=== PATIENT | female | born 1950 | race Caucasian/White ===

== ENCOUNTER 2017-06-01 12:47 | Emergency (ER) | payer OTHER ==
[~2017-06-01] VITALS: Ht 167.6 cm; Wt 71.8 kg
[2017-06-01] MEDS ORDERED: IBUPROFEN 600 MG TAB PO ONE (13:45)
--- NOTE | 2017-06-01 15:30 | REP ---
RIGHT WRIST, FOUR VIEWS: HISTORY: Pain. There is no acute fracture or dislocation. The joint spaces are normal in appearance. IMPRESSION: There is no acute fracture or dislocation. Signed by Ky Esparza MD 06/01/2017 03:33 P
--- NOTE | 2017-06-01 15:31 | REP ---
RIGHT ELBOW, FOUR VIEWS: HISTORY: Pain. There is no acute fracture or dislocation. The joint space is normal in appearance. IMPRESSION: There is no acute fracture or dislocation. Signed by Ky Esparza MD 06/01/2017 03:37 P
[2017-06-01 15:33] VITALS: BP 141/84
== END 2017-06-01 15:33 | disposition home or self-care (01) ==
LOC: M ED 12:47
DX: S63.511A Sprain of carpal joint of right wrist, initial encounter (principal); S50.01XA Contusion of right elbow, initial encounter; W01.0XXA Fall on same level from slipping, tripping and stumbling without subsequent striking against object, initial encounter; Y92.89 Other specified places as the place of occurrence of the external cause; Y93.89 Activity, other specified; Y99.8 Other external cause status

== ENCOUNTER → 2018-11-28 | Outpatient (REF) | payer OTHER | LOC: M LAB REF 17:04 | PROVIDERS: ATTEND Nurse Practitioner Family | DX: M79.2 Neuralgia and neuritis, unspecified (principal) ==

== ENCOUNTER → 2018-12-26 | Outpatient (REF) | payer OTHER ==
[2018-12-27 14:11] LABS: ANTI SCLERODERMA ANTIBODIES <0.2 AI (0.0-0.9); ANTINUCLEAR ANTIBODIES DIRECT Negative (Negative)
== END ==
LOC: M LAB REF 12:51
PROVIDERS: ATTEND Nurse Practitioner Adult Health
DX: R20.8 Other disturbances of skin sensation (principal)

== ENCOUNTER → 2019-11-20 | Outpatient (CLI) | payer MEDICARE ==
--- NOTE | 2019-11-20 11:59 | REP ---
THYROID SONOGRAPHY: HISTORY: Neck swelling. Mass and lump. Localized swelling. FINDINGS: Thyroid isthmus is normal measuring 0.2 cm in diameter. Right lobe of the thyroid measures 4.0 x 1.5 x 1.9 cm. Left lobe dimensions are 4.2 x 1.1 x 1.1 cm. There is a 0.3 cm cyst in the left lobe. No thyroid nodule is seen. Normal appearing neck nodes are visualized bilaterally. The largest on the left measures 1.6 x 0.6 x 0.9 cm. On the right there is a 1.6 x 0.5 x 1.1 cm lymph node. These have normal hypoechoic cortical margins and hyperechoic fatty hilar architecture. IMPRESSION: Unremarkable thyroid sonography. Normal appearing neck nodes seen. Electronically Signed by Seamus Velásquez MD 11/20/2019 01:33 P
== END ==
LOC: M RAD 10:09
PROVIDERS: ATTEND Nurse Practitioner Family
DX: R22.1 Localized swelling, mass and lump, neck (principal)

== ENCOUNTER → 2021-05-22 | Outpatient (CLI) | payer MEDICARE ==
[~2021-05-22] MED LIST: ALBU8.5H INH; AMLO1TAB25 PO; VALS320T2 PO
== END ==
LOC: M LABSMTC 11:23
PROVIDERS: ATTEND Anesthesiology
DX: Z01.812 Encounter for preprocedural laboratory examination (principal); Z20.822 Contact with and (suspected) exposure to COVID-19

== ENCOUNTER 2021-05-27 11:29 | Day surgery (SDC) | payer MEDICARE ==
[~2021-05-27] VITALS: Ht 162.6 cm; Wt 64.0 kg
[~2021-05-27 11:29] MED LIST changes: +NS 1,000 ML IV ONE
[2021-05-27] MEDS ORDERED: propofoL 200 MG/20 ML VIAL As Ordered ONE (12:52)
[2021-05-27] MEDS ORDERED: LIDOCAINE 2% 100MG/5ML SDV (FOR ANES.) As Ordered ONE (13:20)
--- NOTE | 2021-05-27 13:33 | ROOR ---
Patient Name: Kath Friedman Procedure Date: 05/27/2021 1:06 PM Date of : 1950 Age: 70 Room: [facility] Gender: Female Note Status: Finalized Procedure: Total Colonoscopy to Cecum + Biopsy Polypectomy Indications: Screening for colorectal malignant neoplasm, Last colonoscopy 10 years ago Providers: Cameron Meraz MD Referring MD: Carina Saldivar NP Requesting Provider: Medicines: Monitored Anesthesia Care Complications: No immediate complications. Procedure: Pre-Anesthesia Assessment: - The heart rate, respiratory rate, oxygen saturations, blood pressure, adequacy of pulmonary ventilation, and response to care were monitored throughout the procedure. The Colonoscope was introduced through the anus and advanced to the cecum, identified by appendiceal orifice and ileocecal valve. The colonoscopy was performed without difficulty. The patient tolerated the procedure well. The quality of the bowel preparation was good. Findings: The perianal and digital rectal examinations were normal. Non-bleeding internal hemorrhoids were found during retroflexion. The hemorrhoids were small and Grade I (internal hemorrhoids that do not prolapse). Scattered small-mouthed diverticula were found in the recto-sigmoid colon, sigmoid colon and descending colon. A small polyp was found at 20 cm proximal to the anus. The polyp was sessile. The polyp was removed with a jumbo cold forceps. Resection and retrieval were complete. The exam was otherwise without abnormality on direct and retroflexion views. Impression: - Non-bleeding internal hemorrhoids. - Diverticulosis in the recto-sigmoid colon, in the sigmoid colon and in the descending colon. - One small polyp at 20 cm proximal to the anus, removed with a jumbo cold forceps. Resected and retrieved. - The examination was otherwise normal on direct and retroflexion views. - The exam was otherwise normal to the cecum. Recommendation: - Patient has a contact number available for emergencies. The signs and symptoms of potential delayed complications were discussed with the patient. Return to normal activities tomorrow. Written discharge instructions were provided to the patient. - High fiber diet. - Discharge patient to home. - Continue present medications. - Await pathology results. - Telephone GI clinic for pathology results in 1 week. - Repeat colonoscopy PRN for surveillance. - Return to referring physician. - The findings and recommendations were discussed with the patient. Procedure Code(s): --- Professional --- 05763, Colonoscopy, flexible; with biopsy, single or multiple Diagnosis Code(s): --- Professional --- Z12.11, Encounter for screening for malignant neoplasm of colon K64.0, First degree hemorrhoids K63.5, Polyp of colon K57.30, Diverticulosis of large intestine without perforation or abscess without bleeding CPT copyright 2019 [employer]. All rights reserved. The codes documented in this report are preliminary and upon carrier associate review may be revised to meet current compliance requirements. Cameron Meraz MD Cameron Meraz MD 05/27/2021 1:33:11 PM Electronically signed by Cameron Meraz MD Number of Addenda: 0 Note Initiated On: 05/27/2021 1:06 PM Estimated Blood Loss: Estimated blood loss: none.
[2021-05-27 13:50] VITALS: BP 143/64
== END 2021-05-27 13:58 | disposition home or self-care (01) ==
LOC: M OPP 11:29
PROVIDERS: ATTEND Internal Medicine Gastroenterology
DX: Z12.11 Encounter for screening for malignant neoplasm of colon (principal); D12.6 Benign neoplasm of colon, unspecified; K64.0 First degree hemorrhoids; K57.30 Diverticulosis of large intestine without perforation or abscess without bleeding; J44.9 Chronic obstructive pulmonary disease, unspecified; Z79.899 Other long term (current) drug therapy; F17.210 Nicotine dependence, cigarettes, uncomplicated

== ENCOUNTER → 2024-05-28 | Outpatient (CLI) | payer MEDICARE ==
[~2024-05-28] MED LIST changes: -NS 1,000 ML IV ONE
== END ==
LOC: M PLAIMG 11:02
PROVIDERS: ATTEND Physician Assistant Medical
DX: R06.02 Shortness of breath (principal); J44.9 Chronic obstructive pulmonary disease, unspecified

== ENCOUNTER 2025-02-14 17:38 | Inpatient (IN) | payer OTHER, MEDICARE ==
[~2025-02-14] VITALS: Ht 165.1 cm; Wt 72.0 kg
[2025-02-14 18:51] LABS: BASO # 0.1 10^3/uL (0.0-0.2); BASO % 0.4 % (0.0-1.0); EOS # 0.2 10^3/uL (0.0-0.5); EOS % 0.8 % (0.0-3.0); LYMPH # 3.1 10^3/uL (1.5-5.0); LYMPH % 13.7 % (24.0-44.0); MONO # 1.5 10^3/uL (0.0-0.8); MONO % 6.6 % (2.0-8.0); NEUTROPHILS # 17.7 10^3/uL (1.5-8.5); NEUTROPHILS % 77.3 % (36.0-66.0); PLATELET COUNT, AUTOMATED 237 10^3/uL (150-450)
[2025-02-14 18:57] LABS: CK-MB VALUE MASS 2.6 NG/ML (<3.6); INR 0.91
[2025-02-14 19:06] LABS: CPK CREATINE PHOSPHOKINASE 133.0 U/L (34-145); MB/CK RELATIVE INDEX 1.95 (< OR =4)
[2025-02-14] MEDS: MORPHINE 2 MG/ML 1 ML VIAL IV PRN (19:15)
[2025-02-14 20:40] LABS: CALCIUM LEVEL 8.6 MG/DL (8.3-10.6); CARBON DIOXIDE LEVEL 28 MMOL/L (20-31); CHLORIDE LEVEL 97 MMOL/L (98-107); CREATININE FOR GFR 0.48 MG/DL (0.55-1.30); GLOMERULAR FILTRATION RATE > 90.0 (>39); POTASSIUM SERUM 3.7 MMOL/L (3.5-5.1); SODIUM LEVEL 135 MMOL/L (136-145)
[2025-02-14] MEDS ORDERED: ISOVUE-370 76% 100 ML VIAL As Ordered ONE (20:45)
[2025-02-14] MEDS ORDERED: BUDE10.7 INH (22:36)
[2025-02-14] MEDS ORDERED: ATOR1TAB19 PO (22:36)
[2025-02-14] MEDS ORDERED: SERT50TA29 PO (22:36)
[2025-02-14] MEDS ORDERED: HOME MED LIST COMPLETE! XX SCH (22:40)
[2025-02-14] MEDS ORDERED: ONDANSETRON 4MG 2ML VIAL IV PRN (23:25)
[2025-02-14] MEDS ORDERED: ALBUTEROL 90 MCG/ACT 8 GM HFA INHALER INH PRN (23:30)
[2025-02-15] VITALS (9 sets, daily range): BP systolic 127–158; BP diastolic 59–70; TEMP 98.5–99.5; O2SAT 85–96
[2025-02-15] MEDS: LR 1,000 ML IV SCH (00:37)
[2025-02-15 01:05] LABS: APPEARANCE, URINE HAZY (CLEAR); BACTERIA, URINE AUTO 1+ (NEGATIVE); BILIRUBIN, URINE AUTO NEGATIVE (NEGATIVE); BLOOD, URINE BLOOD NEGATIVE (NEGATIVE); GLUCOSE, URINE (UA) AUTO NEGATIVE (NEGATIVE); KETONE, URINE AUTO TRACE mg/dL (NEGATIVE); LEUKOCYTE ESTERASE, URINE AUTO TRACE (NEGATIVE); MUCUS, URINE SMALL (NEGATIVE); NITRITE, URINE AUTO POSITIVE (NEGATIVE); PROTEIN, URINE AUTO NEGATIVE (NEGATIVE); RBC, URINE AUTO 1 /HPF (0-3); SPECIFIC GRAVITY URINE AUTO 1.033 (1.002-1.035); SQUAMOUS EPITHELIAL CELL UR AU 0 /HPF (0-6); UROBILINOGEN, URINE AUTO 0.2 mg/dL (0.0-2.0); WBC, URINE AUTO 9 /HPF (0-3)
[2025-02-15] MEDS: NICOTINE 21 MG/24 HR 1 EA TRANSDERMAL TD SCH (03:00)
[2025-02-15] MEDS: IPRATROPIUM 0.5 MG/ALBUTEROL 2.5 MG INH SOL UD 3 ML NEB PRN (05:31)
[2025-02-15] MEDS: PERCOCET 5MG/325MG TAB PO PRN ×2 (05:40→11:09)
[2025-02-15 06:17] LABS: CALCIUM LEVEL 9.2 MG/DL (8.3-10.6); CARBON DIOXIDE LEVEL 31 MMOL/L (20-31); CHLORIDE LEVEL 96 MMOL/L (98-107); CREATININE FOR GFR 0.43 MG/DL (0.55-1.30); GLOMERULAR FILTRATION RATE > 90.0 (>39); POTASSIUM SERUM 4.2 MMOL/L (3.5-5.1); SODIUM LEVEL 135 MMOL/L (136-145)
[2025-02-15] MEDS: ENOXAPARIN 40 MG/0.4 ML SYRINGE (J1650 PER 10MG) SC SCH (08:04)
[2025-02-15] MEDS: ATORVASTATIN 10 MG TAB PO SCH (08:05)
[2025-02-15] MEDS: SERTRALINE HCL 50 MG TAB PO SCH (08:05)
[2025-02-15] MEDS: amLODIPine 10 MG TAB PO SCH (08:05)
[2025-02-15] MEDS: SYMBICORT 160/4.5MCG INHALER 6GM INH SCH (08:17)
[2025-02-15 08:39] LABS: BASO # 0.1 10^3/uL (0.0-0.2); BASO % 0.6 % (0.0-1.0); EOS # 0.1 10^3/uL (0.0-0.5); EOS % 0.8 % (0.0-3.0); LYMPH # 1.6 10^3/uL (1.5-5.0); LYMPH % 14.7 % (24.0-44.0); MONO # 1.1 10^3/uL (0.0-0.8); MONO % 10.6 % (2.0-8.0); NEUTROPHILS # 7.8 10^3/uL (1.5-8.5); NEUTROPHILS % 72.8 % (36.0-66.0); PLATELET COUNT, AUTOMATED 204 10^3/uL (150-450)
[2025-02-16] VITALS (16 sets, daily range): BP systolic 137–172; BP diastolic 62–79; TEMP 97.6–99; O2SAT 85–97
[2025-02-16 04:40] LABS: BASO # 0.1 10^3/uL (0.0-0.2); BASO % 0.6 % (0.0-1.0); EOS # 0.2 10^3/uL (0.0-0.5); EOS % 2.0 % (0.0-3.0); LYMPH # 1.2 10^3/uL (1.5-5.0); LYMPH % 14.1 % (24.0-44.0); MONO # 1.0 10^3/uL (0.0-0.8); MONO % 11.6 % (2.0-8.0); NEUTROPHILS # 6.2 10^3/uL (1.5-8.5); NEUTROPHILS % 71.2 % (36.0-66.0); PLATELET COUNT, AUTOMATED 152 10^3/uL (150-450)
[2025-02-16 05:05] LABS: ALT/SGPT 29 U/L (7.0-40); AST/SGOT 36 U/L (<34); CALCIUM LEVEL 9.1 MG/DL (8.3-10.6); CARBON DIOXIDE LEVEL 32 MMOL/L (20-31); CHLORIDE LEVEL 97 MMOL/L (98-107); CREATININE FOR GFR 0.50 MG/DL (0.55-1.30); GLOMERULAR FILTRATION RATE > 90.0 (>39); POTASSIUM SERUM 3.6 MMOL/L (3.5-5.1); SODIUM LEVEL 137 MMOL/L (136-145)
[2025-02-16] MEDS: VALSARTAN 80MG TAB PO SCH (09:24)
[2025-02-16] MEDS: ACETAMINOPHEN *IV* 1,000 MG in IV 1 EA IV SCH (14:06)
[2025-02-17] VITALS (10 sets, daily range): BP systolic 150–192; BP diastolic 67–76; TEMP 98–98.8; O2SAT 84–93
[2025-02-17 04:50] LABS: BASO # 0.0 10^3/uL (0.0-0.2); BASO % 0.6 % (0.0-1.0); EOS # 0.2 10^3/uL (0.0-0.5); EOS % 2.9 % (0.0-3.0); LYMPH # 1.2 10^3/uL (1.5-5.0); LYMPH % 16.6 % (24.0-44.0); MONO # 0.9 10^3/uL (0.0-0.8); MONO % 12.0 % (2.0-8.0); NEUTROPHILS # 4.9 10^3/uL (1.5-8.5); NEUTROPHILS % 67.8 % (36.0-66.0); PLATELET COUNT, AUTOMATED 145 10^3/uL (150-450)
[2025-02-17 05:14] LABS: ALT/SGPT 28 U/L (7.0-40); AST/SGOT 31 U/L (<34); CALCIUM LEVEL 8.4 MG/DL (8.3-10.6); CARBON DIOXIDE LEVEL 32 MMOL/L (20-31); CHLORIDE LEVEL 95 MMOL/L (98-107); CREATININE FOR GFR 0.43 MG/DL (0.55-1.30); GLOMERULAR FILTRATION RATE > 90.0 (>39); POTASSIUM SERUM 3.5 MMOL/L (3.5-5.1); SODIUM LEVEL 134 MMOL/L (136-145)
[2025-02-18] VITALS (45 sets, daily range): BP systolic 129–192; BP diastolic 65–79; TEMP 97–98.8; O2SAT 84–99
[2025-02-18 05:04] LABS: BASO # 0.0 10^3/uL (0.0-0.2); BASO % 0.5 % (0.0-1.0); EOS # 0.2 10^3/uL (0.0-0.5); EOS % 2.5 % (0.0-3.0); LYMPH # 0.9 10^3/uL (1.5-5.0); LYMPH % 11.3 % (24.0-44.0); MONO # 0.9 10^3/uL (0.0-0.8); MONO % 11.1 % (2.0-8.0); NEUTROPHILS # 6.0 10^3/uL (1.5-8.5); NEUTROPHILS % 74.5 % (36.0-66.0); PLATELET COUNT, AUTOMATED 168 10^3/uL (150-450)
[2025-02-18 05:49] LABS: ALT/SGPT 87 U/L (7.0-40); AST/SGOT 95 U/L (<34); CALCIUM LEVEL 8.8 MG/DL (8.3-10.6); CARBON DIOXIDE LEVEL 33 MMOL/L (20-31); CHLORIDE LEVEL 95 MMOL/L (98-107); CREATININE FOR GFR 0.48 MG/DL (0.55-1.30); GLOMERULAR FILTRATION RATE > 90.0 (>39); POTASSIUM SERUM 3.6 MMOL/L (3.5-5.1); SODIUM LEVEL 135 MMOL/L (136-145)
[2025-02-18] MEDS: FLUTICASONE PROPIONATE 0.05% NASAL SPRAY 16 GM NARES SCH (12:02)
[2025-02-18] MEDS: SENNA 8.6 MG TAB PO SCH (13:11)
[2025-02-18] MEDS: DOCUSATE SODIUM 100 MG CAPSULE PO SCH (13:11)
[2025-02-19] VITALS (44 sets, daily range): BP systolic 128–165; BP diastolic 58–71; TEMP 98–99.1; O2SAT 86–99
[2025-02-19 05:05] LABS: BASO # 0.0 10^3/uL (0.0-0.2); BASO % 0.2 % (0.0-1.0); EOS # 0.0 10^3/uL (0.0-0.5); EOS % 0.3 % (0.0-3.0); LYMPH # 0.8 10^3/uL (1.5-5.0); LYMPH % 8.1 % (24.0-44.0); MONO # 1.3 10^3/uL (0.0-0.8); MONO % 12.8 % (2.0-8.0); NEUTROPHILS # 7.9 10^3/uL (1.5-8.5); NEUTROPHILS % 78.4 % (36.0-66.0); PLATELET COUNT, AUTOMATED 176 10^3/uL (150-450)
[2025-02-19 05:21] LABS: ALT/SGPT 72 U/L (7.0-40); AST/SGOT 43 U/L (<34); CALCIUM LEVEL 8.6 MG/DL (8.3-10.6); CARBON DIOXIDE LEVEL 31 MMOL/L (20-31); CHLORIDE LEVEL 93 MMOL/L (98-107); CREATININE FOR GFR 0.47 MG/DL (0.55-1.30); GLOMERULAR FILTRATION RATE > 90.0 (>39); POTASSIUM SERUM 3.6 MMOL/L (3.5-5.1); SODIUM LEVEL 133 MMOL/L (136-145)
[2025-02-19 09:18] LABS: ABG BASE EXCESS 2.1 (-2.0-2.0); ABG HCO3 26.5 MMOL/L (22.0-26.0); ABG O2 SATURATION 95.8 % (95.0-99.0); ABG PARTIAL PRESSURE CO2 40.7 mmHg (35.0-45.0); ABG PARTIAL PRESSURE O2 78.0 mmHg (75.0-100.0); ABG STANDARD HCO3 26.3 MMOL/L. (22.0-26.0); ABG TOTAL CO2 27.8 MMOL/L (23.0-31.0); ABG pH (ARTERIAL) 7.432 UNITS (7.350-7.450)
[2025-02-19] MEDS: TIOTROPIUM BROM 2.5MCG/ACTUATION 4GM INH INH SCH (11:19)
[2025-02-19] MEDS: FUROSEMIDE 40 MG/4 ML VIAL IV ONE (14:32)
[2025-02-19] MEDS: PERCOCET 5MG/325MG TAB PO PRN ×2 (14:37→20:57)
[2025-02-19] MEDS: IPRATROPIUM 0.5 MG/ALBUTEROL 2.5 MG INH SOL UD 3 ML NEB SCH (14:58)
[2025-02-20] VITALS (24 sets, daily range): BP systolic 117–144; BP diastolic 59–85; TEMP 97.5–98.8; O2SAT 91–100
[2025-02-20 04:49] LABS: BASO # 0.0 10^3/uL (0.0-0.2); BASO % 0.2 % (0.0-1.0); EOS # 0.1 10^3/uL (0.0-0.5); EOS % 0.6 % (0.0-3.0); LYMPH # 1.3 10^3/uL (1.5-5.0); LYMPH % 13.1 % (24.0-44.0); MONO # 1.2 10^3/uL (0.0-0.8); MONO % 12.7 % (2.0-8.0); NEUTROPHILS # 7.0 10^3/uL (1.5-8.5); NEUTROPHILS % 73.2 % (36.0-66.0); PLATELET COUNT, AUTOMATED 173 10^3/uL (150-450)
[2025-02-20 05:15] LABS: ALT/SGPT 120 U/L (7.0-40); AST/SGOT 88 U/L (<34); CALCIUM LEVEL 8.4 MG/DL (8.3-10.6); CARBON DIOXIDE LEVEL 32 MMOL/L (20-31); CHLORIDE LEVEL 93 MMOL/L (98-107); CREATININE FOR GFR 0.55 MG/DL (0.55-1.30); GLOMERULAR FILTRATION RATE > 90.0 (>39); POTASSIUM SERUM 3.2 MMOL/L (3.5-5.1); SODIUM LEVEL 134 MMOL/L (136-145)
[2025-02-20] MEDS: POTASSIUM CHLORIDE 10MEQ SR TABLET PO ONE (07:55)
[2025-02-20 14:02] LABS: HEPATITIS C VIRUS ABY INDEX 0.05 INDEX (<0.8)
[2025-02-21] VITALS (20 sets, daily range): BP systolic 121–154; BP diastolic 58–67; TEMP 98.3–98.8; O2SAT 88–94
[2025-02-21 06:31] LABS: BASO # 0.0 10^3/uL (0.0-0.2); BASO % 0.3 % (0.0-1.0); EOS # 0.1 10^3/uL (0.0-0.5); EOS % 1.3 % (0.0-3.0); LYMPH # 1.8 10^3/uL (1.5-5.0); LYMPH % 17.8 % (24.0-44.0); MONO # 1.3 10^3/uL (0.0-0.8); MONO % 12.7 % (2.0-8.0); NEUTROPHILS # 6.7 10^3/uL (1.5-8.5); NEUTROPHILS % 67.7 % (36.0-66.0); PLATELET COUNT, AUTOMATED 224 10^3/uL (150-450)
[2025-02-21 07:01] LABS: ALT/SGPT 225 U/L (7.0-40); AST/SGOT 145 U/L (<34); CALCIUM LEVEL 9.0 MG/DL (8.3-10.6); CARBON DIOXIDE LEVEL 31 MMOL/L (20-31); CHLORIDE LEVEL 95 MMOL/L (98-107); CREATININE FOR GFR 0.50 MG/DL (0.55-1.30); GLOMERULAR FILTRATION RATE > 90.0 (>39); POTASSIUM SERUM 3.6 MMOL/L (3.5-5.1); SODIUM LEVEL 135 MMOL/L (136-145)
[2025-02-21] MEDS: predniSONE 20 MG TAB PO SCH (10:31)
[2025-02-21] MEDS: POTASSIUM CHLORIDE 10MEQ SR TABLET PO ONE (13:16)
[2025-02-22] VITALS (14 sets, daily range): BP systolic 144–166; BP diastolic 64–72; TEMP 97.6–98.5; O2SAT 88–95
[2025-02-22 06:17] LABS: BASO # 0.0 10^3/uL (0.0-0.2); BASO % 0.2 % (0.0-1.0); EOS # 0.1 10^3/uL (0.0-0.5); EOS % 0.6 % (0.0-3.0); LYMPH # 1.5 10^3/uL (1.5-5.0); LYMPH % 17.4 % (24.0-44.0); MONO # 1.1 10^3/uL (0.0-0.8); MONO % 12.1 % (2.0-8.0); NEUTROPHILS # 6.1 10^3/uL (1.5-8.5); NEUTROPHILS % 69.4 % (36.0-66.0); PLATELET COUNT, AUTOMATED 233 10^3/uL (150-450)
[2025-02-22 06:36] LABS: ALT/SGPT 178 U/L (7.0-40); AST/SGOT 76 U/L (<34); CALCIUM LEVEL 8.5 MG/DL (8.3-10.6); CARBON DIOXIDE LEVEL 32 MMOL/L (20-31); CHLORIDE LEVEL 94 MMOL/L (98-107); CREATININE FOR GFR 0.45 MG/DL (0.55-1.30); GLOMERULAR FILTRATION RATE > 90.0 (>39); POTASSIUM SERUM 3.5 MMOL/L (3.5-5.1); SODIUM LEVEL 134 MMOL/L (136-145)
[2025-02-22] MEDS: IPRATROPIUM 0.5 MG/ALBUTEROL 2.5 MG INH SOL UD 3 ML NEB SCH (11:52)
[2025-02-22] MEDS: POTASSIUM CHLORIDE 10MEQ SR TABLET PO ONE (13:51)
[2025-02-22] MEDS: BUDESONIDE 0.5 MG/2 ML INHALATION SUSPENSION NEB SCH (19:37)
[2025-02-23] VITALS (26 sets, daily range): BP systolic 91–147; BP diastolic 53–92; TEMP 97.5–98; O2SAT 81–99
[2025-02-23 07:40] LABS: CALCIUM LEVEL 8.9 MG/DL (8.3-10.6); CARBON DIOXIDE LEVEL 32 MMOL/L (20-31); CHLORIDE LEVEL 96 MMOL/L (98-107); CREATININE FOR GFR 0.48 MG/DL (0.55-1.30); GLOMERULAR FILTRATION RATE > 90.0 (>39); POTASSIUM SERUM 3.4 MMOL/L (3.5-5.1); SODIUM LEVEL 136 MMOL/L (136-145)
[2025-02-23] MEDS: POTASSIUM CHLORIDE 10MEQ SR TABLET PO ONE (13:25)
[2025-02-23] MEDS ORDERED: LIDOCAINE 1% MDV 20 ML VIAL As Ordered ONE (15:11)
[2025-02-23] MEDS: MORPHINE 2 MG/ML 1 ML VIAL IV ONE (18:52)
[2025-02-23] MEDS: KETOROLAC 30 MG/ML 1 ML VIAL IV PRN (20:18)
[2025-02-23] MEDS ORDERED: MORPHINE 2 MG/ML 1 ML VIAL IV PRN (21:00)
[2025-02-24] VITALS (10 sets, daily range): BP systolic 115–146; BP diastolic 56–65; TEMP 97.1–98.3; O2SAT 85–96
[2025-02-24 06:50] LABS: BASO # 0.0 10^3/uL (0.0-0.2); BASO % 0.3 % (0.0-1.0); EOS # 0.2 10^3/uL (0.0-0.5); EOS % 1.4 % (0.0-3.0); LYMPH # 2.2 10^3/uL (1.5-5.0); LYMPH % 19.0 % (24.0-44.0); MONO # 1.6 10^3/uL (0.0-0.8); MONO % 13.3 % (2.0-8.0); NEUTROPHILS # 7.7 10^3/uL (1.5-8.5); NEUTROPHILS % 65.0 % (36.0-66.0); PLATELET COUNT, AUTOMATED 303 10^3/uL (150-450)
[2025-02-24 07:16] LABS: CALCIUM LEVEL 8.7 MG/DL (8.3-10.6); CARBON DIOXIDE LEVEL 28.0 MMOL/L (20-31); CHLORIDE LEVEL 98.0 MMOL/L (98-107); CREATININE FOR GFR 0.78 MG/DL (0.55-1.30); GLOMERULAR FILTRATION RATE 78.7 (>39); POTASSIUM SERUM 4.4 MMOL/L (3.5-5.1); SODIUM LEVEL 133.0 MMOL/L (136-145)
[2025-02-24] MEDS: KETOROLAC 30 MG/ML 1 ML VIAL IV ONE (09:26)
[2025-02-24] MEDS: KETOROLAC 30 MG/ML 1 ML VIAL IV SCH (17:27)
[2025-02-25] VITALS (16 sets, daily range): BP systolic 123–150; BP diastolic 56–68; TEMP 97–98.7; O2SAT 89–99
[2025-02-25 05:15] LABS: BASO # 0.0 10^3/uL (0.0-0.2); BASO % 0.1 % (0.0-1.0); EOS # 0.2 10^3/uL (0.0-0.5); EOS % 1.2 % (0.0-3.0); LYMPH # 1.7 10^3/uL (1.5-5.0); LYMPH % 14.1 % (24.0-44.0); MONO # 1.4 10^3/uL (0.0-0.8); MONO % 11.5 % (2.0-8.0); NEUTROPHILS # 8.9 10^3/uL (1.5-8.5); NEUTROPHILS % 72.5 % (36.0-66.0); PLATELET COUNT, AUTOMATED 309 10^3/uL (150-450)
[2025-02-25 05:44] LABS: ALT/SGPT 68 U/L (7.0-40); AST/SGOT 17 U/L (<34); CALCIUM LEVEL 8.4 MG/DL (8.3-10.6); CARBON DIOXIDE LEVEL 28 MMOL/L (20-31); CHLORIDE LEVEL 96 MMOL/L (98-107); CREATININE FOR GFR 0.63 MG/DL (0.55-1.30); GLOMERULAR FILTRATION RATE > 90.0 (>39); POTASSIUM SERUM 4.2 MMOL/L (3.5-5.1); SODIUM LEVEL 131 MMOL/L (136-145)
[2025-02-25 08:18] LABS: OSMOLALITY SERUM 273 MOSM/KG (280-301)
[2025-02-25 10:14] LABS: SODIUM,RANDOM URINE < 10 MMOL/L
[2025-02-25] MEDS: FUROSEMIDE 40 MG/4 ML VIAL IV ONE (13:49)
[2025-02-26] VITALS (31 sets, daily range): BP systolic 92–140; BP diastolic 50–62; TEMP 97.1–99; O2SAT 90–98
[2025-02-26 05:39] LABS: BASO # 0.0 10^3/uL (0.0-0.2); BASO % 0.1 % (0.0-1.0); EOS # 0.1 10^3/uL (0.0-0.5); EOS % 1.2 % (0.0-3.0); LYMPH # 1.8 10^3/uL (1.5-5.0); LYMPH % 16.8 % (24.0-44.0); MONO # 1.2 10^3/uL (0.0-0.8); MONO % 11.1 % (2.0-8.0); NEUTROPHILS # 7.6 10^3/uL (1.5-8.5); NEUTROPHILS % 70.1 % (36.0-66.0); PLATELET COUNT, AUTOMATED 351 10^3/uL (150-450)
[2025-02-26 06:09] LABS: CALCIUM LEVEL 8.6 MG/DL (8.3-10.6); CARBON DIOXIDE LEVEL 30 MMOL/L (20-31); CHLORIDE LEVEL 95 MMOL/L (98-107); CREATININE FOR GFR 0.58 MG/DL (0.55-1.30); GLOMERULAR FILTRATION RATE > 90.0 (>39); POTASSIUM SERUM 3.9 MMOL/L (3.5-5.1); SODIUM LEVEL 133 MMOL/L (136-145)
[2025-02-26] MEDS: LIDOCAINE W/EPINEPHrine 1% 20 ML VIAL As Ordered ONE (08:49)
[2025-02-26] MEDS: THROMBIN 5,000 UNITS VIAL As Ordered ONE (08:49)
[2025-02-26] MEDS ORDERED: EPINEPHrine 1 MG/10 ML SYRINGE 1.5IN As Ordered ONE (08:49)
[2025-02-26] MEDS ORDERED: ROCURONIUM BROMIDE 50MG/5ML VIAL As Ordered ONE (10:02)
[2025-02-26] MEDS ORDERED: LIDOCAINE 2% 100 MG/5 ML SDV (FOR ANES.) As Ordered ONE (10:02)
[2025-02-26] MEDS ORDERED: MIDAZOLAM INJ 2 MG/2 ML VIAL As Ordered ONE (10:02)
[2025-02-26] MEDS ORDERED: ONDANSETRON 4MG 2ML VIAL As Ordered ONE (10:41)
[2025-02-26] MEDS ORDERED: dexAMETHasone 4 MG/ML 1 ML VIAL As Ordered ONE (10:41)
[2025-02-26] MEDS: CETACAINE SPRAY 5 GM As Ordered ONE (10:43)
[2025-02-26] MEDS ORDERED: PHENYLephrine 500MCG 5ML (100MCG/ML) SYRINGE As Ordered ONE (10:47)
[2025-02-26] MEDS ORDERED: dexmedeTOMIDine (4 MCG/ML) 200 MCG/50 ML BTL As Ordered ONE (11:12)
[2025-02-26] MEDS: D5W/0.45% SODIUM CHLORIDE 1,000 ML IV SCH (11:30)
[2025-02-26] MEDS: dexmedeTOMidine 200 MCG in IV 1 EA IV SCH (11:30)
[2025-02-26] MEDS ORDERED: FENTANYL DRIP LOCK BOX KEY 1 EACH XX PRN (12:10)
[2025-02-26] MEDS: fentaNYL CITRATE/NaCl 1,000 MCG in IV 1 EA IV SCH (12:35)
[2025-02-26] MEDS: SCOPOLAMINE 1MG TRANSDERMAL PATCH TOP ONE (12:55)
[2025-02-26] MEDS: MORPHINE 2 MG/ML 1 ML VIAL IV PRN (12:57)
[2025-02-26 20:35] LABS: BASO # 0.0 10^3/uL (0.0-0.2); BASO % 0.2 % (0.0-1.0); EOS # 0.0 10^3/uL (0.0-0.5); EOS % 0.2 % (0.0-3.0); LYMPH # 0.4 10^3/uL (1.5-5.0); LYMPH % 3.0 % (24.0-44.0); MONO # 0.3 10^3/uL (0.0-0.8); MONO % 2.3 % (2.0-8.0); NEUTROPHILS # 12.4 10^3/uL (1.5-8.5); NEUTROPHILS % 93.5 % (36.0-66.0); PLATELET COUNT, AUTOMATED 414 10^3/uL (150-450)
[2025-02-27] VITALS (21 sets, daily range): BP systolic 107–142; BP diastolic 53–64; TEMP 98.3–98.9; O2SAT 90–96
[2025-02-27 05:42] LABS: BASO # 0.0 10^3/uL (0.0-0.2); BASO % 0.1 % (0.0-1.0); EOS # 0.0 10^3/uL (0.0-0.5); EOS % 0.0 % (0.0-3.0); LYMPH # 0.6 10^3/uL (1.5-5.0); LYMPH % 3.6 % (24.0-44.0); MONO # 1.1 10^3/uL (0.0-0.8); MONO % 6.0 % (2.0-8.0); NEUTROPHILS # 15.6 10^3/uL (1.5-8.5); NEUTROPHILS % 89.5 % (36.0-66.0); PLATELET COUNT, AUTOMATED 420 10^3/uL (150-450)
[2025-02-27 06:05] LABS: ALT/SGPT 45 U/L (7.0-40); AST/SGOT 16 U/L (<34); CALCIUM LEVEL 8.8 MG/DL (8.3-10.6); CARBON DIOXIDE LEVEL 27 MMOL/L (20-31); CHLORIDE LEVEL 98 MMOL/L (98-107); CREATININE FOR GFR 0.55 MG/DL (0.55-1.30); GLOMERULAR FILTRATION RATE > 90.0 (>39); MAGNESIUM LEVEL 1.8 MG/DL (1.8-2.4); POTASSIUM SERUM 4.4 MMOL/L (3.5-5.1); SODIUM LEVEL 135 MMOL/L (136-145)
[2025-02-27 06:09] LABS: ABG BASE EXCESS 2.1 (-2.0-2.0); ABG HCO3 26.2 MMOL/L (22.0-26.0); ABG O2 SATURATION 97.3 % (95.0-99.0); ABG PARTIAL PRESSURE CO2 38.7 mmHg (35.0-45.0); ABG PARTIAL PRESSURE O2 98.0 mmHg (75.0-100.0); ABG STANDARD HCO3 26.3 MMOL/L. (22.0-26.0); ABG TOTAL CO2 27.4 MMOL/L (23.0-31.0); ABG pH (ARTERIAL) 7.448 UNITS (7.350-7.450)
== END 2025-02-27 18:59 | disposition short-term general hospital (02) | DRG 135 ==
LOC: EDBD 17:38 → M ED 17:38 → M ED INP 23:01 → M ICU 02-15 09:23 → M PCU 02-20 10:54 → M ICU 02-26 11:13
PROVIDERS: ADMIT Student in an Organized Health Care Education/Training Program; ATTEND Internal Medicine Critical Care Medicine
PROC: 0W9B30Z Drainage of Left Pleural Cavity with Drainage Device, Percutaneous Approach (ICD-10-PCS; principal; 2025-02-23)
PROC: 0BJ08ZZ Inspection of Tracheobronchial Tree, Via Natural or Artificial Opening Endoscopic (ICD-10-PCS; 2025-02-26)
DX: S22.22XA Fracture of body of sternum, initial encounter for closed fracture (principal); J96.01 Acute respiratory failure with hypoxia; J44.1 Chronic obstructive pulmonary disease with (acute) exacerbation; J90 Pleural effusion, not elsewhere classified; S22.32XA Fracture of one rib, left side, initial encounter for closed fracture; J98.19 Other pulmonary collapse; F17.200 Nicotine dependence, unspecified, uncomplicated; I10 Essential (primary) hypertension; F41.9 Anxiety disorder, unspecified; F32.A Depression, unspecified; F10.10 Alcohol abuse, uncomplicated; E78.00 Pure hypercholesterolemia, unspecified; Z79.899 Other long term (current) drug therapy; E78.5 Hyperlipidemia, unspecified; R91.1 Solitary pulmonary nodule; V43.92XA Unspecified car occupant injured in collision with other type car in traffic accident, initial encounter

== ENCOUNTER → 2025-06-04 | Outpatient (CLI) | payer MEDICARE ==
[~2025-06-04] MED LIST changes: +ATOR1TAB19 PO; +BUDE10.7 INH; +SERT50TA29 PO
== END ==
LOC: M PLAIMG 08:07
PROVIDERS: ATTEND Physician Assistant Medical
DX: R29.810 Facial weakness (principal)

== ENCOUNTER → 2025-06-04 | Outpatient (CLI) | payer MEDICARE | LOC: M PLAIMG 08:06 | PROVIDERS: ATTEND Internal Medicine Critical Care Medicine | DX: R91.8 Other nonspecific abnormal finding of lung field (principal); R29.810 Facial weakness ==

== ENCOUNTER → 2025-06-10 | Outpatient (CLI) | payer MEDICARE ==
[2025-06-10 12:41] LABS: BASO # 0.0 10^3/uL (0.0-0.2); BASO % 0.4 % (0.0-1.0); EOS # 0.1 10^3/uL (0.0-0.5); EOS % 1.5 % (0.0-3.0); LYMPH # 1.2 10^3/uL (1.5-5.0); LYMPH % 16.5 % (24.0-44.0); MONO # 0.6 10^3/uL (0.0-0.8); MONO % 8.0 % (2.0-8.0); NEUTROPHILS # 5.3 10^3/uL (1.5-8.5); NEUTROPHILS % 73.5 % (36.0-66.0); PLATELET COUNT, AUTOMATED 239 10^3/uL (150-450)
== END ==
LOC: M LAB 11:50
PROVIDERS: ATTEND Internal Medicine Critical Care Medicine
DX: J44.9 Chronic obstructive pulmonary disease, unspecified (principal)

== ENCOUNTER → 2025-06-25 | Outpatient (CLI) | payer MEDICARE | LOC: M PLARAD 08:16 | PROVIDERS: ATTEND Internal Medicine Critical Care Medicine | DX: R91.8 Other nonspecific abnormal finding of lung field (principal) | CPT/HCPCS: 78815; A9552 ==

== ENCOUNTER → 2025-07-11 | Outpatient (CLI) | payer MEDICARE | LOC: M CARPUL 09:51 | PROVIDERS: ATTEND Internal Medicine Critical Care Medicine | DX: F17.218 Nicotine dependence, cigarettes, with other nicotine-induced disorders (principal) ==

== ENCOUNTER → 2025-07-31 | Outpatient (CLI) | payer MEDICARE ==
[~2025-07-31] MED LIST changes: +IPRA0.00
== END ==
LOC: M ONCR 13:22
PROVIDERS: ATTEND General Practice
DX: R91.8 Other nonspecific abnormal finding of lung field (principal); J44.9 Chronic obstructive pulmonary disease, unspecified; Z87.891 Personal history of nicotine dependence; Z80.1 Family history of malignant neoplasm of trachea, bronchus and lung; Z80.3 Family history of malignant neoplasm of breast; Z79.51 Long term (current) use of inhaled steroids; Z79.899 Other long term (current) drug therapy

== ENCOUNTER 2025-08-09 10:46 | Outpatient (RCR) | payer MEDICARE | END 2025-08-21 | LOC: M ONCR 10:46 | PROVIDERS: ATTEND General Practice | DX: Z51.0 Encounter for antineoplastic radiation therapy (principal); C34.31 Malignant neoplasm of lower lobe, right bronchus or lung ==